=== PATIENT | male | born 1995 | race Caucasian/White ===

== ENCOUNTER 2018-02-04 23:29 | Emergency (ER) | payer OTHER ==
[2018-02-04 23:35] VITALS: BP 124/64; PULSE 89; TEMP 97.6; BMI 25.8
[2018-02-05] MEDS ORDERED: ACETAMINOPHEN/CAFFEINE/BUTALBITAL 1 TAB PO ONE (00:59)
[2018-02-05] MEDS ORDERED: NAPROXEN 500 MG TABLET (FP) PO ONE (00:59)
[2018-02-05] MEDS ORDERED: diphenhydrAMINE HCL 25 MG CAPSULE (FP) PO ONE ×2 (00:59→01:09)
[2018-02-05] MEDS ORDERED: NAPROXEN 500 MG TABLET (FP) ONE (01:09)
[2018-02-05] MEDS ORDERED: ACETAMINOPHEN/CAFFEINE/BUTALBITAL 1 TAB ONE (01:09)
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
== END 2018-02-05 01:21 | disposition home or self-care (01) ==
LOC: JER 23:29
DX: S09.8XXA Other specified injuries of head, initial encounter (principal); G43.909 Migraine, unspecified, not intractable, without status migrainosus; V43.62XA Car passenger injured in collision with other type car in traffic accident, initial encounter; Y92.414 Local residential or business street as the place of occurrence of the external cause; Y93.89 Activity, other specified; Y99.8 Other external cause status
CPT/HCPCS: 99281-25

== ENCOUNTER 2019-02-08 21:34 | Emergency (ER) | payer OTHER ==
[2019-02-08] MEDS ORDERED: SODIUM CHLORIDE 1,000 ML IV STA (22:00)
[2019-02-08] MEDS ORDERED: ACETAMINOPHEN 1000 MG/100 ML VIAL (NON FORMULARY) IVPB ONE (22:00)
[2019-02-08 22:03] VITALS: BMI 33.2
--- NOTE | 2019-02-08 22:09 | PDOC ---
Attending Attestation - HPI HPI: 02/08/19 22:58 The patient is a 23 year old male, with a significant PMH of childhood asthma and migraines, who was BIBA to the emergency room for evaluation of generalized body aches, joint pains, headache, and congestion since Wednesday. The patients mother states that the patient has had a fever since yesterday, with a Tmax of 105 today. Of note, the patient has a sister with an ear infection and another sister with the chicken pox. Patient states they have received the chickenpox vaccine. Allergies: NKA Social history: None reported PCP: Frederick Stauffer - Physicial Exam PE: 02/08/19 22:58 GENERAL: (+) generalized achiness. (+)Shakey. Awake, alert, and fully oriented, in no acute distress HEAD: No signs of trauma EYES: PERRLA, EOMI, sclera anicteric, conjunctiva clear ENT: Ears clear. Tympanic membranes intact, no bulging, redness, fluid. Auricles normal inspection, hearing grossly normal, nares patent, oropharynx clear without exudates. Moist mucosa NECK: Normal ROM, supple, no lymphadenopathy, JVD, or masses LUNGS: Breath sounds equal, clear to auscultation bilaterally. No wheezes, and no crackles HEART: (+)tachycardic. normal S1 and S2, no murmurs, rubs or gallops ABDOMEN: (+)Bilateral CVA tenderness. Soft, nontender, normoactive bowel sounds. No guarding, no rebound. No masses. EXTREMITIES: Normal range of motion, no edema. No clubbing or cyanosis. No cords, erythema, or tenderness NEUROLOGICAL: No meningeal signs. Cranial nerves II through XII grossly intact. Normal speech. SKIN: Warm, Dry, normal turgor, no rashes or lesions noted. <Marietta Mancuso - Last Filed: 02/08/19 22:58> - Resident Resident Name: Kellie Canales - ED Attending Attestation I have performed the following: I have examined & evaluated the patient, The case was reviewed & discussed with the resident, I agree w/resident's findings & plan, Exceptions are as noted - Medical Decision Making 02/08/19 22:09 I, Dr. Andreina Nesbitt, DO, attest that this document has been prepared under my direction and personally reviewed by me in its entirety. I further attest, that it accurately reflects all work, treatment, procedures and medical decision -making performed by me. 02/08/19 22:34 a/p: 23yo male with bermudez, fever, body aches since wednesday -hx of migraines, states bermudez since wednesday- did not try any medications at home -used to follow with Dr. Briggs, but not in a while -fever at home- tmax 105 today -no po intake today -nausea, bermudez, body aches, rhinorrhea, sore throat today -sister at home who had chicken pox 3 weeks ago, no rashes, had the chickenpox vaccine -other sister with ear infection, denies ear pain -pt febrile to 102 -will send labs, cultures, flu swab, iv tylenol -bermudez similar to migraines -pt does not have a rash 02/08/19 22:54 pt is influenza a + 02/08/19 22:54 will start tamiflu- fever started yesterday, body ahces yesterday re-eval: discussed influenza a with the patient pt states feeling better after iv tylenol and ivf hydration ivf still running will continue to monitor bermudez improved no meningeal signs, neck supple 02/08/19 22:56 cxr clear 02/08/19 23:23 resident discussed the case with Dr. Stauffer- requests follow up with him on Wednesday02/09/19 00:55 repeat chem improved pt has been ambulatory in the ED 02/09/19 01:01 pt feeling much better eating and drinking stable for dc to home has been ambulatory in the ED <Andreina Nesbitt - Last Filed: 02/09/19 01:03> *DC/Admit/Observation/Transfer - Discharge Dispostion Decision to Admit order: No <nAdreina Nesbitt - Last Filed: 02/09/19 01:03> Diagnosis at time of Disposition: Influenza A - Discharge Dispostion Disposition: HOME Condition at time of disposition: Stable - Prescriptions Prescriptions: Oseltamivir Phosphate [Tamiflu -] 75 mg PO BID #10 capsule - Referrals Referrals: Frederick Stauffer MD [Primary Care Provider] - - Patient Instructions Printed Discharge Instructions: DI for Influenza -- Adult Additional Instructions: You were seen in the emergency room today for body aches and fever. You have the flu. Keep yourself well hydrated! Drink a lot of fluids like water or gatorade and soup. You can take Tylenol or ibuprofen for the pain and fever as needed. A prescription for Tamiflu was sent to your pharmacy, please take as directed. Dr. Stauffer wants to see you in the office on Wednesday, February 10 so please make an appointment. Come back to the emergency room if pain gets worse, fever gets worse, you have worsening headache or if any new concerning symptom develops. Thank you - Post Discharge Activity Heart Score/ECG Review - ECG Intrepretation Comment:: 02/08/19 23:28 sinus tach at 106, nl axis, nl interval, t wave flattening diffusely <Andreina Nesbitt - Last Filed: 02/09/19 01:03> Attestations - Attestations 02/08/19 22:58 Documentation prepared by Marietta Mancuso, acting as medical records coordinator for Andreina Nesbitt DO. <Marietta Mancuso - Last Filed: 02/08/19 22:58>
[2019-02-08] MEDS ORDERED: METOCLOPRAMIDE HCL INJECTION 10 MG/2 ML VIAL IVPUSH ONE (22:10)
[2019-02-08] MEDS ORDERED: SODIUM CHLORIDE 0.9% 1000 ML INFUS.BAG IV ONE (22:11)
[2019-02-08] MEDS ORDERED: ACETAMINOPHEN INJECTION 100 ML IVPB ONE (22:20)
[2019-02-08] MEDS ORDERED: METOCLOPRAMIDE HCL INJECTION 10 MG/2 ML VIAL ONE (22:24)
[2019-02-08 22:31] LABS: BASO % 0.4 % (0-2.0); EOS % 0.1 % (0-4.5); HEMATOCRIT 47.4 % (35.4-49); HEMOGLOBIN 16.3 GM/dL (11.7-16.9); LYMPH % 14.4 % (8-40); MCH 30.8 pg (25.7-33.7); MCHC 34.5 g/dl (32.0-35.9); MEAN CELL VOLUME 89.3 fl (80-96); MEAN PLT VOLUME 9.7 fl (7.5-11.1); MONO % 18.4 % (3.8-10.2); NEUT % 66.7 % (42.8-82.8); PLATELET COUNT 147 K/MM3 (134-434); RBC 5.31 M/mm3 (4.00-5.60); RDW 12.9 % (11.9-15.9); WHITE BLOOD COUNT 5.9 K/mm3 (4.0-10.0)
[2019-02-08 22:33] LABS: VENOUS PC02 37.5 mmHg (41-51); VENOUS PH 7.47 (7.31-7.41); VENOUS PO2 34.7 mmHg (30-40)
[2019-02-08 22:45] LABS: INR 1.25 (0.83-1.09); PROTHROMBIN TIME (PATIENT) 14.8 SEC (9.7-13.0)
[2019-02-08 22:48] LABS: ACTIVATED PTT 32.6 SECONDS (25.2-36.5)
[2019-02-08] MEDS ORDERED: OSELTAMIVIR PHOSPHATE 75 MG CAPSULE PO ONE (22:49)
[2019-02-08 23:00] LABS: ALBUMIN 4.2 g/dl (3.4-5.0); ALK PHOS 66 U/L (45-117); ANION GAP 6 MMOL/L (8-16); BILIRUBIN,TOTAL 0.5 mg/dL (0.2-1); BLOOD UREA NITROGEN 10 mg/dL (7-18); CALCIUM 8.9 mg/dL (8.5-10.1); CHLORIDE 102 mmol/L (98-107); CO2 29 mmol/L (21-32); CREATININE 1.5 mg/dL (0.55-1.3); GLUCOSE,RANDOM 95 mg/dL (74-106); SGOT/AST 45 U/L (15-37); SGPT/ALT 63 U/L (13-61); SODIUM 137 mmol/L (136-145); TOT PROT 7.8 g/dl (6.4-8.2)
--- NOTE | 2019-02-08 23:02 | PDOC ---
History of Present Illness - General Stated Complaint: PAIN Time Seen by Provider: 02/08/19 21:42 History Source: Patient, Parent(s) Exam Limitations: No Limitations - History of Present Illness Initial Comments: 02/08/19 23:24 Pt is a 23yo M with PMH of Asthma, Migraines presenting to ED for generalized body aches and fevers. Pt has been having body aches since Wednesday and mother noticed fever today of 105 orally. Pt is mainly complaining of pains in the knees but also has pains in all of his joints, has headache, congestion. Denies abdominal pain, n/v/d, urinary symptoms, numbness/tingling. His sister was recently diagnosed with the chicken pox. Pt traveled to [facility] 5 months ago. No history of Lyme disease or STDs. Did not get the flu shot this year. PMD: Nagi Stauffer PMH: see hpi PSH: none Allergies: diazepam Social: denies Past History - Past Medical History Allergies/Adverse Reactions: Allergies Allergy/AdvReac Type Severity Reaction Status Date / Time diazepam [From Valium] Allergy Verified 02/04/18 23:32 Home Medications: Ambulatory Orders No Home Medications 0 dose .ROUTE UTDICT 03/12/13 Oseltamivir Phosphate [Tamiflu -] 75 mg PO BID #10 capsule 02/08/19 Asthma: Yes COPD: No Other medical history: MIGRAINES, ECZEMA - Suicide/Smoking/Psychosocial Hx Smoking Status: No Smoking History: Unknown if ever smoked Years of Tobacco Use: 0 Have you smoked in the past 12 months: No Number of Cigarettes Smoked Daily: 0 Hx Alcohol Use: No Drug/Substance Use Hx: No Substance Use Type: None Hx Substance Use Treatment: No Review of Systems - Review of Systems Constitutional: Yes: Chills, Fever, Malaise, Weakness HEENTM: Yes: Nose Congestion. No: Tearing, Ear Pain, Nose Pain, Throat Pain, Throat Swelling Respiratory: Yes: Shortness of Breath. No: Cough, Hemoptysis Cardiac (ROS): Yes: Chest Pain, Lightheadedness. No: Palpitations, Syncope ABD/GI: No: Constipated, Diarrhea, Nausea, Rectal Bleeding, Vomiting, Abdominal cramping, Tarry Stools : No: Burning, Dysuria Musculoskeletal: Yes: See HPI, Back Pain, Joint Pain, Muscle Pain, Neck Pain Integumentary: No: Symptoms Reported Neurological: Yes: Headache. No: Numbness, Tingling, Tremors, Weakness, Dizziness *Physical Exam - Vital Signs Last Vital Signs Temp Pulse Resp BP Pulse Ox 102.9 F H 110 H 18 118/70 97 02/08/19 21:57 02/08/19 21:57 02/08/19 21:57 02/08/19 21:57 02/08/19 21:57 - Physical Exam General Appearance: Yes: Nourished, Appropriately Dressed, Mild Distress, Other (lethargic) HEENT: positive: EOMI, ANDRZEJ, TMs Normal, Pharynx Normal Neck: positive: Trachea midline, Supple. negative: Lymphadenopathy (R), Lymphadenopathy (L) Respiratory/Chest: positive: Lungs Clear, Normal Breath Sounds. negative: Accessory Muscle Use, Crackles, Rales, Rhonchi, Stridor, Wheezing Cardiovascular: positive: S1, S2, Tachycardia. negative: Edema, JVD, Murmur Vascular Pulses: Carotid (R): 2+, Carotid (L): 2+, Dorsalis-Pedis (R): 2+, Doralis-Pedis (L): 2+ Gastrointestinal/Abdominal: positive: Normal Bowel Sounds, Soft. negative: Tender, Guarding Musculoskeletal: positive: CVA Tenderness, Vertebral Tenderness, Other ( negative bruzinsky, negative kernig. Knee tenderness, no effusions) Extremity: positive: Normal Capillary Refill, Pelvis Stable. negative: Pedal Edema, Swelling Integumentary: positive: Normal Color, Dry, Warm. negative: Erythema, Jaundice , Pale, Clammy, Petechiae, Rash, Ecchymosis Neurologic: positive: forging dies final finisher II-XII NML intact, Fully Oriented, Alert, Normal Mood/ Affect, Normal Response, Motor Strength 5/5 ED Treatment Course - LABORATORY CBC & Chemistry Diagram: 02/08/19 22:20 02/08/19 22:20 - ADDITIONAL ORDERS Additional order review: Laboratory Results 02/08/19 02/08/19 02/08/19 22:20 22:20 22:20 PT with INR INR PTT (Actin FS) VBG pH 7.47 H POC VBG pCO2 37.5 L POC VBG pO2 34.7 VBG HCO3 27.1 VBG O2 Sat (Stacy) 74.4 VBG Base Excess 3.9 H Sodium 137 Potassium 4.0 Chloride 102 Carbon Dioxide 29 Anion Gap 6 L BUN 10 Creatinine 1.5 H Creat Clearance w eGFR 57.50 Random Glucose 95 Calcium 8.9 Total Bilirubin 0.5 AST 45 H ALT 63 H Alkaline Phosphatase 66 Troponin I < 0.02 Total Protein 7.8 Albumin 4.2 02/08/19 22:20 PT with INR 14.80 H INR 1.25 H PTT (Actin FS) 32.6 VBG pH POC VBG pCO2 POC VBG pO2 VBG HCO3 VBG O2 Sat (Stacy) VBG Base Excess Sodium Potassium Chloride Carbon Dioxide Anion Gap BUN Creatinine Creat Clearance w eGFR Random Glucose Calcium Total Bilirubin AST ALT Alkaline Phosphatase Troponin I Total Protein Albumin 02/08/19 22:20 RBC 5.31 MCV 89.3 MCHC 34.5 RDW 12.9 D MPV 9.7 D Neutrophils % 66.7 Lymphocytes % 14.4 D Monocytes % 18.4 H D Eosinophils % 0.1 D Basophils % 0.4 - RADIOLOGY Radiology Studies Ordered: Category Date Time Status CHEST X-RAY PORTABLE* [RAD] Stat Radiology 02/08/19 21:59 Taken - Medications Given in the ED: ED Medications Discontinued Medications Generic Name Dose Route Start Last Admin Trade Name Freq PRN Reason Stop Dose Admin Acetaminophen 1,000 mg 02/08/19 22:00 02/08/19 22:36 Ofirmev Injection - IVPB 02/08/19 22:01 1,000 mg ONCE ONE Administration Sodium Chloride 1,000 mls @ 1,000 mls/hr 02/08/19 22:00 02/08/19 22:16 Normal Saline - IV 02/08/19 22:59 1,000 mls/hr ASDIR STA Administration Metoclopramide HCl 10 mg 02/08/19 22:10 02/08/19 22:36 Reglan Injection - IVPUSH 02/08/19 22:11 10 mg ONCE ONE Administration Sodium Chloride 1,000 ml 02/08/19 22:11 02/08/19 22:48 Normal Saline - IV 02/08/19 22:12 1,000 ml ONCE ONE Administration Medical Decision Making - Medical Decision Making 02/08/19 23:28 Pt is a 23yo M with PMH of Asthma, Migraines presenting to ED for generalized body aches and fevers. Pt has been having body aches since Wednesday and mother noticed fever today of 105 orally. Pt is mainly complaining of pains in the knees but also has pains in all of his joints, has headache, congestion. Denies abdominal pain, n/v/d, urinary symptoms, numbness/tingling. His sister was recently diagnosed with the chicken pox. Pt traveled to [facility] 5 months ago. No history of Lyme disease or STDs. Did not get the flu shot this year. vitals: febrile, tachycardic, saturating well on ra PE: diffuse joint/muscular tenderness. lungs cta, normal HEENT, dry mucosa ddx includes but not limited to influenza, meningitis, viral infection, pna -septic workup -fluids, iv tylenol -ekg, cxr labs wnl. flu A positive.Tamiflu no white count. Cr 1.5. hydrating. lactic normal ekg; sinus tachycardia cxr: no consolidations or infiltrates Called Dr. Stauffer, wants to see pt in office on Wednesday. Giving 3L. wiill redraw chemistry. pt agrees to plan for dc. repeat temp 99. if labs normal will dc. rx for tamiflu *DC/Admit/Observation/Transfer Diagnosis at time of Disposition: Influenza A - Discharge Dispostion Disposition: HOME Condition at time of disposition: Improved Decision to Admit order: No - Prescriptions Prescriptions: Oseltamivir Phosphate [Tamiflu -] 75 mg PO BID #10 capsule - Referrals Referrals: Frederick Stauffer MD [Primary Care Provider] - - Patient Instructions Printed Discharge Instructions: DI for Influenza -- Adult Additional Instructions: You were seen in the emergency room today for body aches and fever. You have the flu. Keep yourself well hydrated! Drink a lot of fluids like water or gatorade and soup. You can take Tylenol or ibuprofen for the pain and fever as needed. A prescription for Tamiflu was sent to your pharmacy, please take as directed. Dr. Stauffer wants to see you in the office on February 10 so please make an appointment. Come back to the emergency room if pain gets worse, fever gets worse, you have worsening headache or if any new concerning symptom develops. Thank you - Post Discharge Activity
[2019-02-08] MEDS ORDERED: LACTATED RINGERS SOLUTION 1000 ML INFUS.BAG IV ONE (23:08)
[2019-02-08] MEDS ORDERED: OSELTAMIVIR PHOSPHATE 75 MG CAPSULE ONE (23:32)
[2019-02-08 23:54] VITALS: BP 121/47; PULSE 90; TEMP 99.5
[2019-02-09 00:54] LABS: CALCIUM 7.8 mg/dL (8.5-10.1); CO2 27 mmol/L (21-32); CREATININE 1.3 mg/dL (0.55-1.3); POTASSIUM 3.7 mmol/L (3.5-5.1); SODIUM 142 mmol/L (136-145)
[2019-02-09 01:05] LABS: ANION GAP 5 MMOL/L (8-16); BLOOD UREA NITROGEN 10 mg/dL (7-18); CHLORIDE 110 mmol/L (98-107); GLUCOSE,RANDOM 116 mg/dL (74-106)
--- NOTE | 2019-02-09 11:46 | EKG ---
Test Reason : Blood Pressure : / mmHG Vent. Rate : 106 BPM Atrial Rate : 106 BPM P-R Int : 152 ms QRS Dur : 090 ms QT Int : 292 ms P-R-T Axes : 062 004 038 degrees QTc Int : 387 ms SINUS TACHYCARDIA POSSIBLE LEFT ATRIAL ENLARGEMENT NONSPECIFIC T WAVE ABNORMALITY ABNORMAL ECG WHEN COMPARED WITH ECG OF 12-MAR-2013 09:49, ST NO LONGER ELEVATED IN ANTERIOR LEADS T WAVE INVERSION NOW EVIDENT IN ANTERIOR LEADS Confirmed by SASHA WOODRUFF, NICOLE ([id number]) on 02/09/2019 11:46:23 AM Referred By: Confirmed By:NICOLE BAEZ MD
== END 2019-02-09 01:27 | disposition home or self-care (01) ==
LOC: JER 21:34
PROC: 3E0337Z Introduction of Electrolytic and Water Balance Substance into Peripheral Vein, Percutaneous Approach (ICD-10-PCS; principal; 2019-02-08)
PROC: 3E033NZ Introduction of Analgesics, Hypnotics, Sedatives into Peripheral Vein, Percutaneous Approach (ICD-10-PCS; 2019-02-08)
PROC: 3E033GC Introduction of Other Therapeutic Substance into Peripheral Vein, Percutaneous Approach (ICD-10-PCS; 2019-02-08)
DX: J09.X2 Influenza due to identified novel influenza A virus with other respiratory manifestations (principal)
CPT/HCPCS: 36415; 71045-TC-FY; 80048; 80053; 82803; 83605; 84484; 85025; 85610; 85730; 87040; 87804; 93005; 93010; 99281-25; J0131; J7030

== ENCOUNTER 2021-08-09 00:31 | Emergency (ER) | payer OTHER ==
[2021-08-09 01:05] VITALS: BP 139/82; PULSE 78; TEMP 98.2; BMI 25.8
== END 2021-08-09 02:01 | disposition home or self-care (01) ==
LOC: JER 00:31
PROC: 0HQFXZZ Repair Right Hand Skin, External Approach (ICD-10-PCS; principal; 2021-08-09)
DX: S61.011A Laceration without foreign body of right thumb without damage to nail, initial encounter (principal); S60.511A Abrasion of right hand, initial encounter; W25.XXXA Contact with sharp glass, initial encounter
CPT/HCPCS: 73130-TC-RT-FY; 99283-25

== ENCOUNTER 2021-08-16 13:33 | Emergency (ER) | payer OTHER ==
[2021-08-16 13:48] VITALS: BP 109/71; PULSE 94; TEMP 98.1; BMI 33.2
== END 2021-08-16 14:16 | disposition home or self-care (01) ==
LOC: JER 13:33 → JERFT 13:33
DX: Z48.02 Encounter for removal of sutures (principal)
CPT/HCPCS: 99281-25; 99283-25